=== PATIENT | female | born 1980 | race Caucasian/White ===

== ENCOUNTER 2018-08-17 06:41 | Emergency (ER) | payer MEDICARE, OTHER ==
[2018-08-17 07:04] VITALS: BP 141/99; PULSE 87; RESP 16; TEMP 98.3; O2SAT 97
== END 2018-08-17 08:55 | disposition home or self-care (01) | DRG 563 ==
LOC: ED 06:41
DX: S93.401A Sprain of unspecified ligament of right ankle, initial encounter (principal); W00.9XXA Unspecified fall due to ice and snow, initial encounter
CPT/HCPCS: 73630; 99282; 99283

== ENCOUNTER 2018-08-28 21:05 | Emergency (ER) | payer MEDICARE, OTHER ==
[2018-08-28] MEDS ORDERED: ALBUTEROL/IPRATROPIUM 1 VIAL SOL ONE (21:09)
[2018-08-28] MEDS ORDERED: ALBUTEROL/IPRATROPIUM 1 VIAL SOL INH ONE (21:10)
[2018-08-28] MEDS ORDERED: SOLUMEDROL 125 MG/2 ML 125 MG/2 ML PDS IV ONE (21:16)
[2018-08-28] MEDS ORDERED: SODIUM CHLORIDE 0.9% 1000ML 1,000 ML IV ONE (21:16)
[2018-08-28] MEDS ORDERED: LORAZEPAM 2 MG/ML 10ML MDV 2 MG/ML VIAL IV ONE ×2 (21:16→21:53)
[2018-08-28] MEDS ORDERED: SOLUMEDROL 125 MG/2 ML 125 MG/2 ML PDS ONE (21:29)
[2018-08-28] MEDS ORDERED: LORAZEPAM 2 MG/ML SOL ONE ×2 (21:29→21:54)
[2018-08-28] MEDS ORDERED: ALBUTEROL NEB SOL 2.5MG/3ML 1 VIAL SOL NEB ONE (22:00)
[2018-08-28] MEDS ORDERED: ALBUTEROL NEB SOL 2.5MG/3ML 1 VIAL SOL ONE (22:49)
[2018-08-28 23:03] VITALS: O2SAT 99
[2018-08-28 23:27] VITALS: TEMP 97.9
[2018-08-28 23:28] VITALS: BP 118/76; PULSE 116; RESP 20
== END 2018-08-28 23:10 | disposition home or self-care (01) | DRG 203 ==
LOC: ED 21:05
DX: J45.901 Unspecified asthma with (acute) exacerbation (principal); R05 Cough; R06.02 Shortness of breath
CPT/HCPCS: 71045; 96365; 96374; 96375; 99283; 99285; J2060; J2930; J7613

== ENCOUNTER 2018-10-07 22:14 | Emergency (ER) | payer MEDICARE, OTHER ==
[2018-10-07] MEDS ORDERED: SODIUM CHLORIDE 0.9% FLUSH 10 ML SOL IV PRN (22:18)
[2018-10-07] MEDS ORDERED: ASPIRIN 81 MG CHEWABLE CTB PO STA (22:18)
[2018-10-07] MEDS ORDERED: NITROGLYCERIN 0.4 MG TAB SL PRN (22:18)
[2018-10-07] MEDS ORDERED: ALBUTEROL NEB SOL 2.5MG/3ML 1 VIAL SOL ONE (22:37)
[2018-10-07] MEDS ORDERED: ALBUTEROL NEB SOL 2.5MG/3ML 1 VIAL SOL NEB ONE (22:50)
[2018-10-07 22:58] VITALS: TEMP 97.9
[2018-10-07 23:01] LABS: BASOPHILS % (AUTO) 2 % (0-3); EOSINOPHILS % (AUTO) 3 % (0-9); HEMATOCRIT 47 % (35-47); HEMOGLOBIN 15.4 gm/dl (12.0-15.5); MEAN CORPUSCULAR HEMOGLOBIN 30.3 pg (27.0-32.0); MEAN CORPUSCULAR HGB CONC 32.8 gm/dl (32.0-36.0); MEAN CORPUSCULAR VOLUME 92 fL (81-99); MONOCYTES % (AUTO) 8.7 % (0-12); NEUTROPHILS % (AUTO) 55.8 % (37-80)
[2018-10-07] MEDS ORDERED: SOLUMEDROL 125 MG/2 ML 125 MG/2 ML PDS IV ONE (23:02)
[2018-10-07 23:14] LABS: BLOOD UREA NITROGEN 10 mg/dl (7-18); CALCIUM 8.6 mg/dl (8.5-10.1); CARBON DIOXIDE 15.1 mEq/L (21-32); CHLORIDE 109 mMol/L (98-107); CREATININE 0.84 mg/dl (0.60-1.00); GLUCOSE 50 mg/dl (74-106); POTASSIUM 3.2 mMol/L (3.5-5.1); SODIUM 142 mMol/L (136-145); TROP I < 0.017 ng/ml (0.000-0.056)
[2018-10-07] MEDS ORDERED: SOLUMEDROL 125 MG/2 ML 125 MG/2 ML PDS ONE (23:22)
[2018-10-07] MEDS ORDERED: SODIUM CHLORIDE 0.9% 1000ML 1,000 ML IV ONE (23:26)
[2018-10-07] MEDS ORDERED: POTASSIUM CHLORIDE 10 MEQ TER PO ONE (23:26)
[2018-10-07] MEDS ORDERED: POTASSIUM CHLORIDE 10 MEQ TER ONE (23:31)
[2018-10-08] MEDS ORDERED: ACETAMI/HYDROCO 325/10 TAB PO ONE (00:53)
[2018-10-08] MEDS ORDERED: ALBUTEROL/IPRATROPIUM 1 VIAL SOL INH ONE (00:54)
[2018-10-08] MEDS ORDERED: APAP/HYDROCODONE 1 EACH TABLET ONE (01:02)
[2018-10-08] MEDS ORDERED: ALBUTEROL/IPRATROPIUM 1 VIAL SOL ONE (01:03)
[2018-10-08 01:53] VITALS: O2SAT 100
[2018-10-08 01:56] VITALS: BP 104/69; PULSE 77; RESP 18
[2018-10-08] MEDS ORDERED: ASPIRIN 81 MG CHEWABLE CTB ONE (02:29)
== END 2018-10-08 01:40 | disposition home or self-care (01) | DRG 203 ==
LOC: ED 22:14
DX: J45.901 Unspecified asthma with (acute) exacerbation (principal)
CPT/HCPCS: 70450; 71045; 80048; 82962; 84484; 85025; 93005; 96365; 96374; 99284; 99285; J1885; J2930; J7613; A9270-GY

== ENCOUNTER 2018-10-08 22:27 | Emergency (ER) | payer MEDICARE, OTHER ==
[2018-10-08 22:46] VITALS: TEMP 97.6
[2018-10-08] MEDS ORDERED: ONDANSETRON 4 MG ODT ONE (22:57)
[2018-10-08] MEDS ORDERED: ACETAMINOPHEN 500 MG 500 MG TAB ONE (22:57)
[2018-10-08] MEDS ORDERED: ACETAMINOPHEN 500 MG 500 MG TAB PO ONE (22:58)
[2018-10-08] MEDS ORDERED: ONDANSETRON 4 MG ODT BU ONE (22:58)
[2018-10-08] MEDS ORDERED: KETOROLAC TROMETHAMINE 30 MG/ML SOL IM ONE (23:47)
[2018-10-09] MEDS ORDERED: KETOROLAC TROMETHAMINE 30 MG/ML SOL ONE (00:24)
[2018-10-09 00:39] VITALS: RESP 16
[2018-10-09 00:40] VITALS: BP 122/82; PULSE 81; O2SAT 98
== END 2018-10-09 00:30 | disposition home or self-care (01) | DRG 948 ==
LOC: ED 22:27
DX: R41.82 Altered mental status, unspecified (principal); R51 Headache; R07.9 Chest pain, unspecified; Z92.29 Personal history of other drug therapy
CPT/HCPCS: 36415; 70450; 80053; 80305; 80307; 84484; 85025; 99284; J1885; A9270-GY